=== PATIENT | male | born 1990 | race Caucasian/White ===

== ENCOUNTER 2016-11-26 13:46 | Emergency (ER) | payer SELFPAY ==
[~2016-11-26] VITALS: Ht 177.8 cm; Wt 99.8 kg
[2016-11-26 14:36] VITALS: BP 136/71
[2016-11-26] MEDS ORDERED: HYDROmorphone HCL 2 MG/ML VL IM ONE (15:30)
[2016-11-26] MEDS ORDERED: ONDANSETRON HCL 4 MG/2 ML VIAL IM ONE (15:30)
== END 2016-11-26 16:00 | disposition home or self-care (01) ==
LOC: ER 13:46
DX: S39.012A Strain of muscle, fascia and tendon of lower back, initial encounter (principal); X50.9XXA Other and unspecified overexertion or strenuous movements or postures, initial encounter; Y93.89 Activity, other specified; Y92.89 Other specified places as the place of occurrence of the external cause; Y99.8 Other external cause status
CPT/HCPCS: 72100; 96372; 99284; J1170; J2405

== ENCOUNTER 2017-07-22 15:39 | Emergency (ER) | payer MEDICAID ==
[~2017-07-22] VITALS: Ht 185.4 cm; Wt 117.9 kg
[2017-07-22 17:57] VITALS: BP 148/85
[2017-07-22] MEDS ORDERED: HYDROcodone-ACET 5/325MG TAB PO ONE (18:15)
== END 2017-07-22 18:56 | disposition home or self-care (01) ==
LOC: ER 15:39
DX: S39.012A Strain of muscle, fascia and tendon of lower back, initial encounter (principal); X58.XXXA Exposure to other specified factors, initial encounter; Y93.89 Activity, other specified; Y92.89 Other specified places as the place of occurrence of the external cause; Y99.8 Other external cause status

== ENCOUNTER 2019-04-07 18:43 | Emergency (ER) | payer MEDICAID ==
[~2019-04-07] VITALS: Ht 185.4 cm; Wt 117.9 kg
[2019-04-07 22:30] VITALS: BP 110/70
== END 2019-04-07 23:04 | disposition home or self-care (01) ==
LOC: EDBD 18:43 → ER 18:43
DX: H92.03 Otalgia, bilateral (principal); J06.9 Acute upper respiratory infection, unspecified

== ENCOUNTER 2022-01-05 01:39 | Emergency (ER) | payer MEDICAID ==
[~2022-01-05] VITALS: Ht 180.3 cm; Wt 110.0 kg
[2022-01-05 01:55] VITALS: BP 142/90
[2022-01-05] MEDS ORDERED: KETOROLAC TROMETH 60MG/2ML VIAL IM ONE (03:15)
== END 2022-01-05 03:30 | disposition home or self-care (01) ==
LOC: EDBD 01:39 → ER 01:39 → EDUNIT# 01:39 → ER 03:25
DX: M54.50 Low back pain, unspecified (principal)
CPT/HCPCS: 96372; 99283; J1885